=== PATIENT | male | born 1955 | race Caucasian/White ===

== ENCOUNTER 2016-07-01 11:31 | Inpatient (IN) | payer OTHER ==
[~2016-07-01] VITALS: Ht 170.2 cm; Wt 88.5 kg
[~2016-07-01 11:31] MED LIST: ATORVASTATIN CA10 MG PO; HYPERTENSION; LOSARTAN POTASS1 TA4 PO; METOPROLOL TART50 M1 PO; MICARDIS HCT 121 TA1 PO; PRADAXA150 MG PO; [UNRECOGNIZED DRUG - OTHER] PO; [UNRECOGNIZED DRUG - REMARK]
[2016-07-01 11:39] VITALS: BP 154/84
--- NOTE | 2016-07-01 11:44 | NUR ---
Patient ambulated to bed 05.
[2016-07-01] MEDS ORDERED: NITROGLYCERIN 2% 1 GM PKT TP ONE (11:45)
[2016-07-01] MEDS ORDERED: METOPROLOL 5 MG/5 ML VIAL IVP ONE (11:45)
--- NOTE | 2016-07-01 11:45 | NUR ---
PT REFERRED TO ER FROM PCP FOR EVALUATION OF CHEST PAIN X3 DAYS. HX HTN, HYPERLIPIDEMIA. EKG COMPLETED IN ER SHOWS Rebekah CURRIE NOTIFIED; DENIES N/V/D; SKIN IS PINK/WARM/DRY; AAOX4 WITH EVEN AND STEADY GAIT; LUNGS CLEAR BL; HR EVEN AND REGULAR; PT DENIES ANY FEVER, CP, SOB, OR COUGH AT THIS TIME; PATIENT STATES PAIN OF 5/10 AT THIS TIME; VSS; PATIENT POSITIONED FOR COMFORT; HOB ELEVATED; BEDRAILS UP X2; BED DOWN. ER MD MADE AWARE OF PT STATUS.
--- NOTE | 2016-07-01 13:05 | NUR ---
Dr. Ortiz evaluating patient at bedside.
[2016-07-01] MEDS ORDERED: ECOTRIN 81 MG TABEC PO ONE (13:45)
--- NOTE | 2016-07-01 13:56 | NUR ---
Patient will be admitted to care of DR CHE. Admited to TELE. Will go to room 108A. Belongings list completed. Report to NILESH MORILLO.
--- NOTE | 2016-07-01 13:56 | NUR ---
ASPIRIN WILL BE GIVEN BY NILESH MORILLO UPON ADMISSION, REPORT GIVEN TO NILESH MORILLO
--- NOTE | 2016-07-01 14:10 | NUR ---
ARRIVED ON FLOOR, 2 ER NURSES ATTENDING. PT IS STABLE AND AMBULATORY. PT IS 60Y/O MACEDONIAN SPEAKING MALE. HE IS ALERT AND ORIENTED. APPLIED TELE MONITOR, V/S, AND NEW ID BAND. PUT ON BEIGE SOCKS. REMOVED HIS PANTS AND PUT IN HIS PERSONAL BELONGINGS BAG. ASKED KAROLINA WILLOUGHBY TO TRANSLATE. PT IS A GOOD HISTORIAN OF HIS MEDICAL HISTORY. PT STATED THAT HE DOES HAVE HYPERLIPIDEMIA AND HYPERTENSION BUT HAS NOT TAKEN MEDICATION FOR 4 MO SINCE HE WAS IN [place]. HE ALSO HAS HX OF GOUT. NO MEDS. SKIN IS INTACT. IV ON L AC 20G. NO FLUID ORDERS AT THIS TIME. WILL CONTINUE TO MONITOR PT.
[2016-07-01 14:20] VITALS: BP 131/93
[2016-07-01 16:00] VITALS: BP 129/94
--- NOTE | 2016-07-01 16:10 | NUR ---
CALLED DR. CHE. ASKED HIM FOR AN ORDER FOR DIET. HE ORDERED CARDIAC. ALSO ORDERED TROPONIN (4 HRS APART). ASKED MARISELA, CHARGE NURSE TO PUT IN ORDERS INTO THE COMPUTER. DR. CHE STATED, HE WILL BE HERE IN AN HOUR TO SEE PT.
--- NOTE | 2016-07-01 17:50 | NUR ---
ATE 100% OF DINNER. PT HAS NO COMPLAINTS. NO PAIN. RESTING COMFORTABLY.
[2016-07-01] MEDS ORDERED: ASPIRIN 81 MG TAB.CHEW PO SCH (18:15)
[2016-07-01] MEDS ORDERED: MORPHINE SULFATE 2 MG/ML SYR IVP PRN (18:45)
[2016-07-01] MEDS ORDERED: MORPHINE SULFATE 4 MG/ML SYR IVP PRN (18:45)
[2016-07-01] MEDS ORDERED: ONDANSETRON 4 MG/2 ML VIAL IVP PRN (18:45)
--- NOTE | 2016-07-01 19:07 | NUR ---
PT SLEEPING. NO SIGNS OF DISTRESS. WILL CONTINUE TO MONITOR PT.
--- NOTE | 2016-07-01 19:25 | NUR ---
ENDORSED PT TO THE BULLDOZER/LOADER/COMPACTOR/SCRAPER AT BEDSIDE FOR CONTINUITY OF CARE. PT IS IN STABLE CONDITION. PT C/O PAIN. ELIER WILL GET HIM A PAIN MED.
[2016-07-01 19:45] VITALS: BP 120/68
--- NOTE | 2016-07-01 19:45 | NUR ---
RECEIVED PT IN STABLE CONDITION FROM AM NURSE. AWAKE,ALERT,ORIENTED X4. ON TELE -A FIB. NO ACUTE DISTRESS NOTED. WITH HL ON THE LT AC#20. CLEAR AND PATENT. PLAN OF CARE DISCUSSED AND VERBALIZED UNDERSTANDING. MADE AWARE ABOUT HE NPO STATUS AFTER MN FOR THE LEXISCAN IN AM. CALL LIGHT AND URINAL PLACED WITHIN EASY REACH. WILL CONTINUE TO MONITOR.
[2016-07-01] MEDS ORDERED: ACETAMINOPHEN 325 MG TAB PO PRN (20:00)
--- NOTE | 2016-07-01 20:00 | NUR ---
PAGED DR. WITT, FOR PT C/O HEADACHE. Maria Elena VIEIRA DIRECTOR OF GIFT PLANNING. CALLED BACK WITH TYLENOL PO ORDER PRN.
[2016-07-01] MEDS: SIMVASTATIN 20 MG TAB PO SCH (20:18)
[2016-07-01] MEDS ORDERED: METOPROLOL 25 MG TAB PO SCH (21:00)
--- NOTE | 2016-07-01 22:00 | NUR ---
SLEEPING AT THIS TIME. NO S/S OF ANY DISCOMFORT NOR PAIN NOTED. WILL CONTINUE TO MONITOR.
[2016-07-01 23:03] VITALS: BP 110/60
--- NOTE | 2016-07-01 23:14 | NUR ---
PT HR LOW ON THE MONITOR @2237 HR-40, THEN @2300 HR-37.ASSESSED PT ,NO DISTRESS NOR PAIN NOTED. VITAL SIGNS WAS TAKEN @2303 TEMP 98, R-18,HR-59, BP 110/60. PAGED AND ABLE TO TALKED TO HIM AND MADE AWARE OF THE CHANGES IN HR, WITH ORDER TO DC LOPRESSOR. WILL CONTINUE TO MONITOR .
[2016-07-02] VITALS (7 sets, daily range): BP systolic 101–148; BP diastolic 53–100
--- NOTE | 2016-07-02 00:10 | NUR ---
INSTRUCTED PT AGAIN ABOUT THE NPO AFTER MN FOR THE PROCEDURE IN AM. VERBALIZED UNDERSTANDING
--- NOTE | 2016-07-02 02:13 | NUR ---
PT C/O SOME DISCOMFORT ON THE LT LOWER SIDE OF THE CHEST @08/03. PT REFUSED TO HAVE ANY PAIN MED AT THIS TIME. INSTRUCTED TO CALL IF PAIN BECOMES WORST . VERBALIZED UNDERSTANDING
--- NOTE | 2016-07-02 03:30 | NUR ---
REASSESSED PT HE SAID NO PAIN AT THIS TIME. VITAL SIGNS TAKEN . STABLE . WILL CONTINUE TO MONITOR.
--- NOTE | 2016-07-02 05:30 | NUR ---
SLEEPING AT THIS TIME. NO C/O ANY PAIN NOTED. WILL CONTINUE TO MONITOR.
--- NOTE | 2016-07-02 07:20 | NUR ---
RECEIVED PATIENT REPORT. PATIENT ASLEEP IN BED. BUT EASILY AROUSABLE. NO S/S OF DISTRESS NOTED. NO C/O OF PAIN. PATIENT NPO FOR A SCHEDULED STRESS TEST TODAY. PATIENT AWARE AND VERBALIZED UNDERSTANDING. PATIENT ON TELE MONITORING. BED LOWERED WITH CALL LIGHT WITHIN REACH. WILL CONTINUE TO MONITOR
--- NOTE | 2016-07-02 07:20 | NUR ---
ENDORSED PT IN STABLE CONDITION TO AM NURSE.
--- NOTE | 2016-07-02 08:19 | NUR ---
PATIENT HAS BEEN SCREENED AND CATEGORIZED MODERATE NUTRITION RISK. PATIENT WILL BE SEEN WITHIN 3-5 DAYS OF ADMISSION. 07/04/16-07/06/[address]
[2016-07-02] MEDS: ISOSORBIDE DINITRATE 10 MG TAB PO SCH ×3 (09:00→16:03)
[2016-07-02] MEDS ORDERED: NON-FORMULARY ITEM (Losartan/Hydrochlorothiazide (Losartan-Hctz 100-12.5 mg Tab) 1 TAB) PO SCH (09:00)
[2016-07-02] MEDS ORDERED: NON-FORMULARY ITEM (Atorvastatin Calcium 20 MG) PO SCH (09:00)
[2016-07-02] MEDS ORDERED: DABIGATRAN ETEXILATE MESYLAT 75 MG CAP PO SCH (09:00)
[2016-07-02] MEDS ORDERED: ASPIRIN 81 MG TAB.CHEW PO SCH (09:00)
--- NOTE | 2016-07-02 09:00 | NUR ---
SCHEDULED MEDS HELD. PATIENT NPO FOR STRESS TEST
--- NOTE | 2016-07-02 11:55 | NUR ---
PATIENT LEFT FOR STRESS TEST
[2016-07-02] MEDS ORDERED: REGADENOSON 0.4 MG/5 ML SYR IV SCH (12:30)
[2016-07-02] MEDS ORDERED: METOPROLOL 5 MG/5 ML VIAL IVP SCH (13:35)
--- NOTE | 2016-07-02 14:03 | NUR ---
LEXISCAN STRESS TEST DONE
--- NOTE | 2016-07-02 14:06 | NUR ---
CM NOTE INITIAL REVIEW SENT TO [facility] FAX#[phone] PH# FABIANA [phone]
[2016-07-02] MEDS ORDERED: METOPROLOL TART25 MG PO (15:20)
[2016-07-02] MEDS ORDERED: PRADAXA150 MG PO (15:25)
[2016-07-02] MEDS ORDERED: ATORVASTATIN CA20 MG PO (15:27)
[2016-07-02] MEDS ORDERED: POTASSIUM CHLORIDE 10 MEQ TABER PO SCH (15:30)
[2016-07-02] MEDS ORDERED: MAG SULF 2000 MG/WATER PREMIX 50 ML IV SCH (15:30)
--- NOTE | 2016-07-02 15:30 | NUR ---
PATIENT EATING. NO S/S OF DISTRESS NOTED. NO C/O PAIN
--- NOTE | 2016-07-02 15:54 | NUR ---
CLARIFIED WITH DR CHE THE ORDER FOR MAGNESIUM. ORDERS TO ADMINISTER THE MEDICATION
[2016-07-02] MEDS: HYDROCHLOROTHIAZIDE 25 MG TAB PO SCH (15:55)
[2016-07-02] MEDS: ATORVASTATIN 20 MG TAB PO SCH (15:55)
[2016-07-02] MEDS: LOSARTAN 50 MG TAB PO SCH (15:56)
[2016-07-02] MEDS: ASPIRIN 81 MG TAB.CHEW PO SCH (15:56)
--- NOTE | 2016-07-02 16:45 | NUR ---
PATIENT'S FAMILY PRESENT AT BEDSIDE. PATIENT WATCHING TELEVISION. NO S/S OF DISTRESS NOTED
--- NOTE | 2016-07-02 19:16 | NUR ---
ENDORSED CONTINUITY OF CARE TO THE NIGHT NURSE. PATIENT IN STABLE CONDITION
--- NOTE | 2016-07-02 19:40 | NUR ---
RECEIVED PT IN STABLE CONDITION FROM AM NURSE. AWAKE,ALERT AND ORIENTED X4. KAZAKH SPEAKING. ON TELE 0A FIB. NO C.O ANY DISCOMFORT NOR PAIN NOTED AT THIS TIME. AMBULATORY. WITH HL ON THE LT AC#20.CLEAR AND PATENT. FAMILY AT BEDSIDE. AWAITING FOR RESULT OF LEXISCAN . PT MADE AWARE ABOUT THIS . CALL LIGHT PLACED WITHIN EASY REACH. WILL CONTINUE TO MONITOR.
[2016-07-02] MEDS: SIMVASTATIN 20 MG TAB PO SCH (21:25)
[2016-07-02] MEDS: DABIGATRAN ETEXILATE MESYLAT 75 MG CAP PO SCH (21:26)
--- NOTE | 2016-07-02 23:40 | NUR ---
PT IS SLEEPING WITH NO S/S OF ANY DISCOMFORT NOTED. WILL CONTINUE TO MONITOR.
[2016-07-03 00:10] VITALS: BP 136/77
--- NOTE | 2016-07-03 02:00 | NUR ---
HAS BEEN UP TO BATHROOM X2. NO DISCOMFORT NOTED. NO CHEST AT THIS TIME.
--- NOTE | 2016-07-03 04:00 | NUR ---
VITAL SIGNS TAKEN .STABLE. STILL AWAITING FOR RESULT OF LEXISCAN. WILL ENDORSE TO AM NURSE FOLLOW UP THIS AM.
[2016-07-03 04:05] VITALS: BP 132/84
--- NOTE | 2016-07-03 07:11 | NUR ---
RECEIVED PATIENT REPORT AT BEDSIDE. PATIENT AWAKE, ALERT AND ORIENTED. NO S/S OF DISTRESS NOTED. NO C/O OF PAIN. IV LINE NOTED TO THE LEFT AC SALINE LOCKED. PATIENT ON TELE MONITORING. BED LOWERED WITH CALL LIGHT WITHIN REACH. WILL CONTINUE TO MONITOR
--- NOTE | 2016-07-03 07:11 | NUR ---
ENDORSED PT IN STABLE CONDITION TO AM NURSE.
[2016-07-03 08:00] VITALS: BP 128/73
[2016-07-03] MEDS: LOSARTAN 50 MG TAB PO SCH (08:11)
[2016-07-03] MEDS: ATORVASTATIN 20 MG TAB PO SCH (08:11)
[2016-07-03] MEDS: ASPIRIN 81 MG TAB.CHEW PO SCH (08:12)
[2016-07-03] MEDS: HYDROCHLOROTHIAZIDE 25 MG TAB PO SCH (08:12)
[2016-07-03] MEDS: ISOSORBIDE DINITRATE 10 MG TAB PO SCH (08:12)
[2016-07-03] MEDS: DABIGATRAN ETEXILATE MESYLAT 75 MG CAP PO SCH (08:13)
--- NOTE | 2016-07-03 10:30 | NUR ---
STRESS TEST REPORT SHOWN TO DR CHE. DR CHE STATES PATIENT IS CLEAR TO BE DISCHARGED HOME
[2016-07-03] MEDS ORDERED: XARELTO20 MG PO (10:55)
--- NOTE | 2016-07-03 11:38 | NUR ---
PATIENT DISCHARGED TO HOME. DISCHARGE INSTRUCTIONS AND DISCHARGE PRESCRIPTIONS GIVEN. PATIENT VERBALIZED UNDERSTANDING. IV LINE DISCONTINUED. TELE LEADS TAKEN OFF. PATIENT LEFT WITH ALL HIS BELONGINGS AND DISCHARGE PAPERS. PATIENT LEFT IN STABLE CONDITION
--- NOTE | 2016-07-03 14:31 | NUR ---
GUADALUPE IRVING SPOKE WITH GUADALUPE JUNG OF [facility] PH# [phone] TO INFORM HER PATIENT IS DISCHARGED TODAY. DISCHARGE SUMMARY SENT TO [facility] FAX# [phone] PH# FABIANA [phone]
== END 2016-07-03 11:40 | disposition home or self-care (01) | DRG 198 ==
LOC: MED 11:31 → MTU 13:28
PROVIDERS: ADMIT Internal Medicine Pulmonary Disease; ATTEND Internal Medicine Pulmonary Disease
DX: R07.89 Other chest pain (principal); I25.10 Atherosclerotic heart disease of native coronary artery without angina pectoris; I10 Essential (primary) hypertension; I48.91 Unspecified atrial fibrillation; Z91.14 Patient's other noncompliance with medication regimen; E78.5 Hyperlipidemia, unspecified; Z98.890 Other specified postprocedural states

== ENCOUNTER 2019-03-17 20:05 | Emergency (ER) | payer OTHER ==
[~2019-03-17] VITALS: Ht 170.2 cm; Wt 93.9 kg
[~2019-03-17 20:05] MED LIST changes: +ATOR20TA40 PO; -ATORVASTATIN CA10 MG PO; +HYDR-3298 PO; -HYPERTENSION; -LOSARTAN POTASS1 TA4 PO; +METO25TA PO; -METOPROLOL TART50 M1 PO; -MICARDIS HCT 121 TA1 PO; -PRADAXA150 MG PO; +RIVA20TA PO; -[UNRECOGNIZED DRUG - OTHER] PO; -[UNRECOGNIZED DRUG - REMARK]
[2019-03-17 20:17] VITALS: BP 156/105
--- NOTE | 2019-03-17 20:25 | NUR ---
PT AMBULATED TO BED #1
--- NOTE | 2019-03-17 20:44 | NUR ---
PT 63 Y/O M PRESENTS TO ER C/O DIZZINESS AND LEFT STERNAL CHEST PAIN AND NUMBNESS TO LEFT ARM SINCE NOON. PAIN LEVEL 6/10, SHARP PAIN THAT COMES AND GOES. PT AWAKE AND ALERT. VSS. DENIES SHORTNESS OF BREATH. HOB ELEVATED, BED IN LOWEST POSITION, SIDE RAIL UP X1. WAITING FOR ERMD TO EVALUATE PT. ALLERGIES: NKA MED HX: HTN, HYPERLIPIDEMIA, ARRYTHMIA RX: LOSARTAN HCT 100-12.5 TAB ATORVASTATIN 40MG TAB METOPROL SUC 50MG TAB XARELTO 15MG TAB
[2019-03-17 20:50] LABS: BASOPHILS % (AUTO) 0.3 % (0.0-2.0); EOSINOPHILS # (AUTO) 0.2 K/uL (0-0.4); EOSINOPHILS % (AUTO) 2.7 % (0.0-4.0); HEMATOCRIT 46.5 % (36-52); HEMOGLOBIN 15.8 g/dL (12.0-18.0); LYMPHOCYTES # (AUTO) 3.5 K/uL (2.0-11.5); LYMPHOCYTES % (AUTO) 45.3 % (20.5-51.1); MEAN CORPUSCULAR HEMOGLOBIN 32 pg (27-31); MEAN CORPUSCULAR HGB CONC 34 g/dL (33-37); MEAN CORPUSCULAR VOLUME 92.7 fL (80-94); MONOCYTES # (AUTO) 0.5 K/uL (0.8-1.0); MONOCYTES % (AUTO) 6.9 % (1.7-9.3); NEUTROPHILS # (AUTO) 3.5 K/uL (1.8-7.7); NEUTROPHILS % (AUTO) 44.8 % (42.2-75.2); PLATELET COUNT (AUTO) 184 K/uL (140-450); RED BLOOD CELL COUNT(AUTO) 5.02 MIL/uL (4.20-6.10); RED CELL DISTRIBUTION WIDTH 14.4 % (11.6-13.7); WHITE BLOOD COUNT (AUTO) 7.8 K/uL (4.8-10.8)
[2019-03-17 21:25] LABS: ANION GAP 15.4 (8-16); CARBON DIOXIDE 28.5 mmol/L (21-32); CREATININE 1.1 mg/dL (0.7-1.3); POTASSIUM 3.9 mmol/L (3.5-5.1)
[2019-03-17 21:30] LABS: ALBUMIN 3.7 g/dL (3.4-5.0); TOTAL BILIRUBIN 0.8 mg/dL (0.0-1.0)
--- NOTE | 2019-03-17 22:00 | NUR ---
PT RESTING IN BED, VSS. FAMILY AT BEDSIDE. WILL CONTINUE TO MONITOR.
[2019-03-17 23:17] VITALS: BP 124/76
--- NOTE | 2019-03-17 23:17 | NUR ---
Patient discharged with v/s stable. Written and verbal after care instructions given and explained. Pt encouraged to rest and follow up with PCP in 4-5 days. Patient alert, oriented and verbalized understanding of instructions. Ambulatory with steady gait. All questions addressed prior to discharge. ID band removed. Patient advised to follow up with PMD. Rx of mOTRIN 800MG WAS given. Patient educated on indication of medication including possible reaction and side effects. Opportunity to ask questions provided and answered.
== END 2019-03-17 23:17 | disposition home or self-care (01) ==
LOC: MED 20:05
DX: R07.9 Chest pain, unspecified (principal); R06.02 Shortness of breath; I10 Essential (primary) hypertension; E78.5 Hyperlipidemia, unspecified; Z79.899 Other long term (current) drug therapy
CPT/HCPCS: 36415; 71045; 80053; 84484; 85025; 93005; 99284; Q0092

== ENCOUNTER 2019-07-09 16:39 | Emergency (ER) | payer OTHER ==
[~2019-07-09] VITALS: Ht 170.2 cm; Wt 81.6 kg
[2019-07-09 16:46] VITALS: BP 131/96
--- NOTE | 2019-07-09 17:00 | NUR ---
PT C/O RT KNEE PAIN RADIATING TO THE RT-SIDED HIP AND LOWER BACK FOR 2 DAYS, AND THE PAIN WAKENS PT UP DURING SLEEP. DENIES TRAUMA/INJURY. PATIENT STATES PAIN OF 10/10 AT THIS TIME; VSS; PATIENT POSITIONED FOR COMFORT; HOB ELEVATED; BEDRAILS UP X1; BED DOWN. ER MD MADE AWARE OF PT STATUS.
[2019-07-09] MEDS ORDERED: KETOROLAC 60 MG/2 ML VIAL IM ONE (18:25)
[2019-07-09 18:55] VITALS: BP 116/88
--- NOTE | 2019-07-09 18:55 | NUR ---
Patient discharged with v/s stable. Written and verbal after care instructions given and explained. Patient alert, oriented and verbalized understanding of instructions. Ambulatory with crutches provided. All questions addressed prior to discharge. ID band removed. Patient advised to follow up with PMD. Rx of Motrin given. Patient educated on indication of medication including possible reaction and side effects. Opportunity to ask questions provided and answered.
== END 2019-07-09 18:55 | disposition home or self-care (01) ==
LOC: MED 16:39
DX: M25.561 Pain in right knee (principal); I51.9 Heart disease, unspecified; Z79.899 Other long term (current) drug therapy
CPT/HCPCS: 36415; 73562; 84550; 96372; 99284; J1885

== ENCOUNTER 2021-09-24 09:18 | Inpatient (IN) | payer OTHER ==
[~2021-09-24] VITALS: Ht 172.7 cm; Wt 95.4 kg
[~2021-09-24 09:18] MED LIST changes: +ACET-10509 PO; +AZIT250T3 PO; +CEPH-588 PO; +IBUP-2230 PO; +SULF-58 PO
[2021-09-24 09:21] VITALS: BP 134/93
--- NOTE | 2021-09-24 09:25 | NUR ---
PT AMBULATED TO ER BED 1
[2021-09-24] MEDS ORDERED: ASPIRIN 81 MG TAB.CHEW PO ONE (09:40)
--- NOTE | 2021-09-24 09:40 | NUR ---
66Y MALE BIB SELF C/O COUGH & MID CHEST PAIN NON-RADIAITNG X3 DAYS. PMH: HTN. DENIES N/V/D; SKIN IS PINK/WARM/DRY; AAOX4 WITH EVEN AND STEADY GAIT; LUNGS CLEAR BL; TACHYCARDIA. PT DENIES ANY FEVER AT THIS TIME; PATIENT STATES PAIN OF 8/10 AT THIS TIME. PATIENT POSITIONED FOR COMFORT; HOB ELEVATED; BEDRAILS UP X1; BED DOWN. ER MD MADE AWARE OF PT STATUS.
--- NOTE | 2021-09-24 09:40 | NUR ---
Note undone in EDM - 09/24/21 at 1019 by [email or web address] 66Y MALE BIB SELF C/O COUGH & MID CHEST PAIN NON-RADIAITNG X3 DAYS. PMH: HTN. DENIES N/V/D; SKIN IS PINK/WARM/DRY; AAOX4 WITH EVEN AND STEADY GAIT; LUNGS CLEAR BL; TACHYCARDIA. PT DENIES ANY FEVER OR SOB AT THIS TIME; PATIENT STATES PAIN OF 8/10 AT THIS TIME. PATIENT POSITIONED FOR COMFORT; HOB ELEVATED; BEDRAILS UP X1; BED DOWN. ER MD MADE AWARE OF PT STATUS.
--- NOTE | 2021-09-24 09:48 | NUR ---
Patient being evaluated by DR AZUL at bedside.
[2021-09-24] MEDS ORDERED: KETOROLAC 30 MG/ML VIAL IVP ONE (09:50)
--- NOTE | 2021-09-24 10:00 | NUR ---
COVID TORI SWAB DONE.
[2021-09-24 10:07] LABS: BASOPHILS % (AUTO) 0.2 % (0.0-2.0); EOSINOPHILS % (AUTO) 0.1 % (0.0-4.0); HEMATOCRIT 43.2 % (36-52); HEMOGLOBIN 14.3 g/dL (12.0-18.0); LYMPHOCYTES # (AUTO) 1.4 K/uL (2.0-11.5); LYMPHOCYTES % (AUTO) 9.7 % (20.5-51.1); MEAN CORPUSCULAR HEMOGLOBIN 30 pg (27-31); MEAN CORPUSCULAR HGB CONC 33 g/dL (33-37); MEAN CORPUSCULAR VOLUME 90.6 fL (80-94); MONOCYTES # (AUTO) 0.2 K/uL (0.8-1.0); MONOCYTES % (AUTO) 1.5 % (1.7-9.3); NEUTROPHILS # (AUTO) 12.5 K/uL (1.8-7.7); NEUTROPHILS % (AUTO) 88.5 % (42.2-75.2); PLATELET COUNT (AUTO) 227 K/uL (140-450); RED BLOOD CELL COUNT(AUTO) 4.76 MIL/uL (4.20-6.10); RED CELL DISTRIBUTION WIDTH 15.4 % (11.6-13.7); WHITE BLOOD COUNT (AUTO) 14.1 K/uL (4.8-10.8)
[2021-09-24] MEDS ORDERED: ATOR40TA PO (10:39)
[2021-09-24] MEDS ORDERED: TAMS0.4C96 PO (10:39)
[2021-09-24] MEDS ORDERED: LOSA100T1 PO (10:42)
[2021-09-24] MEDS ORDERED: [UNRECOGNIZED DRUG - OTHER] (10:46)
[2021-09-24] MEDS ORDERED: METO50TE2 PO (10:46)
[2021-09-24] MEDS ORDERED: NACL 0.9% 1,000 ML IV ONE (10:50)
[2021-09-24] MEDS ORDERED: cefTRIAXone 1,000 MG VIAL ONE (10:53)
[2021-09-24 10:59] LABS: ANION GAP 12.4 (8-16); CARBON DIOXIDE 27.9 mmol/L (21-32); CREATININE 1.3 mg/dL (0.6-1.3); POTASSIUM 3.3 mmol/L (3.5-5.1); TOTAL BILIRUBIN 1.4 mg/dL (0.0-1.0)
[2021-09-24] MEDS ORDERED: DOCUSATE SODIUM 100 MG GELCAP PO PRN (11:45)
[2021-09-24] MEDS ORDERED: ONDANSETRON 4 MG/2 ML VIAL IM/IVP PRN (11:45)
[2021-09-24] MEDS ORDERED: ACETAMINOPHEN 325 MG TAB PO PRN (11:45)
[2021-09-24] MEDS ORDERED: POTASSIUM CHLORIDE 10 MEQ TABER PO PRN (11:45)
[2021-09-24] MEDS ORDERED: ZOLPIDEM 5 MG TAB PO PRN (11:45)
[2021-09-24] MEDS ORDERED: HYDROcodone/APAP 7.5/325 MG 1 TAB PO PRN (11:45)
[2021-09-24] MEDS ORDERED: METOPROLOL SUCCINATE 50 MG TABER PO PRN (11:50)
[2021-09-24 12:09] LABS: PROTHROMBIN TIME 12.3 secs (10.8-13.4)
[2021-09-24] MEDS: AZITHROMYCIN 250 MG TAB PO SCH (12:10)
[2021-09-24] MEDS: NACL 0.9% 1,000 ML IV SCH (12:11)
[2021-09-24] MEDS ORDERED: DIGOXIN 0.25 MG/ML AMP IV SCH (13:10)
[2021-09-24 18:17] LABS: FREE T4 (FREE THYROXINE) 1.41 ng/dL (0.76-1.46); PHOSPHORUS 3.5 mg/dL (2.5-4.9); THYROID STIMULATING HORMONE 0.87 uIU/mL (0.34-3.74)
[2021-09-24 18:24] LABS: MAGNESIUM 1.8 mg/dL (1.8-2.4)
--- NOTE | 2021-09-24 18:41 | NUR ---
MRSA SWAB DONE.
--- NOTE | 2021-09-24 19:31 | NUR ---
Pt report given to NILESH PIÑA. Transfer of care at this time.
--- NOTE | 2021-09-24 21:00 | NUR ---
PATIENT IN ROOM RESTING. PATIENT IV INTACT AND RUNNING. PATIENT BED LOW AND LOCKED. SIDE RAIL UP FOR SAFETY. ALL NEEDS MET AT THIS TIME.
[2021-09-24] MEDS: METOPROLOL 50 MG TAB PO SCH (21:22)
[2021-09-24] MEDS: ATORVASTATIN 20 MG TAB PO SCH (21:24)
[2021-09-24] MEDS: RIVAROXABAN 10 MG TAB PO SCH (21:27)
--- NOTE | 2021-09-24 22:08 | NUR ---
IV ESTABLISHED. 22G LEFT HAND
--- NOTE | 2021-09-25 01:30 | NUR ---
PATIENT SLEEPING IN BED. APPEARS TO BE IN NO DISTRESS, RR EVEN AND UNLABORED. BED LOW AND LOCKED. ALL NEEDS MET AT THIS TIME
[2021-09-25] MEDS: NACL 0.9% 1,000 ML IV SCH ×2 (04:25→21:05)
--- NOTE | 2021-09-25 05:05 | NUR ---
PATIENT SLEEPING IN BED. APPEARS TO BE IN NO DISTRESS. BED LOW AND LOCKED. ALL NEEDS MET AT THIS TIME
[2021-09-25] MEDS: METOPROLOL 50 MG TAB PO SCH ×3 (05:35→20:29)
[2021-09-25] MEDS: guaiFENesin DM 200/20 MG-10 ML 10 ML UDC PO PRN (05:42)
--- NOTE | 2021-09-25 05:42 | NUR ---
PATIENT C/O COUGH PRN MEDS GIVEN
--- NOTE | 2021-09-25 07:28 | NUR ---
RECEIVED REPORT FROM KAYLEIGH PIÑA FOR TRANSFER OF CARE.
[2021-09-25 07:32] LABS: BASOPHILS % (AUTO) 0.2 % (0.0-2.0); EOSINOPHILS # (AUTO) 0.1 K/uL (0-0.4); EOSINOPHILS % (AUTO) 1.4 % (0.0-4.0); HEMATOCRIT 39.7 % (36-52); HEMOGLOBIN 13.2 g/dL (12.0-18.0); LYMPHOCYTES % (AUTO) 21.8 % (20.5-51.1); MEAN CORPUSCULAR HEMOGLOBIN 30 pg (27-31); MEAN CORPUSCULAR HGB CONC 33 g/dL (33-37); MEAN CORPUSCULAR VOLUME 91.1 fL (80-94); MONOCYTES # (AUTO) 0.4 K/uL (0.8-1.0); MONOCYTES % (AUTO) 4.3 % (1.7-9.3); NEUTROPHILS # (AUTO) 6.6 K/uL (1.8-7.7); NEUTROPHILS % (AUTO) 72.3 % (42.2-75.2); PLATELET COUNT (AUTO) 206 K/uL (140-450); RED BLOOD CELL COUNT(AUTO) 4.36 MIL/uL (4.20-6.10); RED CELL DISTRIBUTION WIDTH 15.6 % (11.6-13.7); WHITE BLOOD COUNT (AUTO) 9.1 K/uL (4.8-10.8)
[2021-09-25 08:08] LABS: T4 (THYROXINE) 8.5 ug/dL (4.5-12.0)
[2021-09-25 08:09] LABS: ANION GAP 10.7 (8-16); CARBON DIOXIDE 25.8 mmol/L (21-32); CREATININE 1.1 mg/dL (0.6-1.3); POTASSIUM 3.5 mmol/L (3.5-5.1)
--- NOTE | 2021-09-25 08:51 | NUR ---
OFFERED BREAKFAST TRAY. PATIENT IS SITTING UP EATING BREAKFAST.
[2021-09-25] MEDS ORDERED: LOSARTAN 50 MG TAB PO SCH (09:00)
[2021-09-25] MEDS ORDERED: TAMSULOSIN 0.4 MG CAP PO SCH (09:00)
[2021-09-25] MEDS: AZITHROMYCIN 250 MG TAB PO SCH (10:00)
[2021-09-25] MEDS: PANTOPRAZOLE 40 MG TABEC PO SCH (10:00)
--- NOTE | 2021-09-25 10:00 | NUR ---
MEDICATION GIVEN TO PATIENT, TOLERATED WELL. PATIENT HAS NO SIGNS OF DISTRESS. ALL NEEDS MET.
[2021-09-25] MEDS ORDERED: cefTRIAXone 1,000 MG VIAL ONE (10:03)
--- NOTE | 2021-09-25 11:08 | NUR ---
PATIENT AMBULATED TO RESTROOM WITH STEADY GAIT.
--- NOTE | 2021-09-25 12:15 | NUR ---
Patient will be admitted to care of DR. HERNADEZ. Admited to TELEMETRY. Will go to room 107-B. Belongings list completed. Report to NILESH GREEN.
[2021-09-25 12:25] VITALS: BP 148/91
--- NOTE | 2021-09-25 12:25 | NUR ---
RECEIVED PT FROM ELECTRIC METER REPAIRER, PT IS ALERT AND ORIENTED, ON RA, AMBULATES TO THE BED WITH STEADY GAIT, SAFETY PRECAUTION IN PLACE, IV LINES NOTED ON THE RAC G. 20 ON SALINE LOCK AND ON THE LEFT HAND G. 22 WITH IVF NS INFUSING AT 60ML/HR, INTACT, PT IS PERSIAN SPEAKING AND DENIES PAIN AT THIS TIME. WILL CONTINUE TO MONITOR PT.
[2021-09-25] MEDS ORDERED: RIVA20TA PO (14:48)
[2021-09-25] MEDS ORDERED: RANEX500 PO (14:48)
[2021-09-25] MEDS ORDERED: TAMS0.4C96 PO (14:48)
--- NOTE | 2021-09-25 15:43 | NUR ---
PATIENT HAS BEEN SCREENED AND CATEGORIZED LOW NUTRITION RISK. PATIENT WILL BE SEEN WITHIN 7 DAYS OF ADMISSION. 09/30/[address]
[2021-09-25 16:00] VITALS: BP 129/74
--- NOTE | 2021-09-25 18:03 | NUR ---
URINE SAMPLE FOR URINALYSIS AND URINE DRUG TEST WAS COLLECTED AND SENT TO LAB
--- NOTE | 2021-09-25 18:14 | NUR ---
MRSA OF NARES SWAB WAS DONE TO PT AND SAMPLE WAS SENT TO LAB.
--- NOTE | 2021-09-25 19:20 | NUR ---
ENDORSED PT TO NIGHT RN FOR CONTINUITY OF CARE, PT IS STABLE AT THIS TIME.
--- NOTE | 2021-09-25 19:25 | NUR ---
GET THE REPORT FROM MORNING NURSE,PATIENT IS LYING ON BED, PATIENT IS ALERT ORIENTED X4, PATIENT IS KHMER SPEAKER, CALL LIGHT IS WITHIN THE REACH, WILL CONTINUE TO MONITOR PATIENT.
[2021-09-25 19:46] LABS: APPEARANCE,URINE CLEAR (CLEAR); BILIRUBIN,URINE NEGATIVE (NEGATIVE); BLOOD, URINE NEGATIVE (NEGATIVE); LEUKOCYTE ESTERASE ,URINE NEGATIVE (NEGATIVE); NITRITE, URINE NEGATIVE (NEGATIVE); UGLUCOSE NEGATIVE (NEGATIVE)
[2021-09-25 19:47] LABS: COLOR,URINE AMBER (YELLOW)
[2021-09-25 20:00] VITALS: BP 143/78
[2021-09-25] MEDS: ATORVASTATIN 20 MG TAB PO SCH (20:28)
[2021-09-25] MEDS: RIVAROXABAN 10 MG TAB PO SCH (20:30)
[2021-09-25 22:07] LABS: BARBITURATE, URINE NEGATIVE ng/ml (NEG <=200); BENZODIAZEPINE, URINE NEGATIVE ng/mL (NEG <=200); CANNABINOID, URINE NEGATIVE ng/mL (NEG <=50); COCAINE, URINE NEGATIVE ng/mL (NEG <=300); OPIATE, URINE NEGATIVE ng/mL (NEG <=2000); PHENCYCLIDINE SCREEN,URINE NEGATIVE ng/mL (NEG <=25)
[2021-09-26] VITALS: BP 136/85
--- NOTE | 2021-09-26 00:10 | NUR ---
PATIENT IS LYING ON BED, VITAL SIGN IS WITHIN THE NORMAL RANGE, CALL LIGHT IS WITHIN THE REACH, WILL CONTINUE TO MONITOR PATIENT
[2021-09-26] MEDS: guaiFENesin DM 200/20 MG-10 ML 10 ML UDC PO PRN (01:28)
--- NOTE | 2021-09-26 01:30 | NUR ---
PATIENT IS COMPLAINING OF COUGHING,ROBITUSSIN 5ML PO PRN IS GIVEN PER DOCTOR ORDER,CALL LIGHT IS WITHIN THE REACH, WILL CONTINUE TO MONITOR PATIENT.
[2021-09-26 04:00] VITALS: BP 143/87
--- NOTE | 2021-09-26 04:15 | NUR ---
PATIENT IS LYING ON BED, VITAL SIGN IS WITHIN THE NORMAL RANGE , NO ANY COMPLAIN OF PAIN OR SHORTNESS OF BREATH AT THIS TIME,CALL LIGHT IS WITHIN THE REACH, WILL CONTINUE TO MONITOR PATIENT.
[2021-09-26] MEDS: METOPROLOL 50 MG TAB PO SCH ×2 (04:40→13:57)
--- NOTE | 2021-09-26 04:54 | NUR ---
ALL SCHEDULE MEDICATION IS GIVEN PER DOCTOR ORDER, CALL LIGHT IS WITHIN THE REACH, WILL CONTINUE TO MONITOR PATIENT.
--- NOTE | 2021-09-26 07:23 | NUR ---
GAVE REPORT TO MORNING NURSE MARISELA FOR CONTINUOS OF CARE, PATIENT IS STABLE.
[2021-09-26 07:36] LABS: BASOPHILS % (AUTO) 0.1 % (0.0-2.0); EOSINOPHILS # (AUTO) 0.2 K/uL (0-0.4); EOSINOPHILS % (AUTO) 2.1 % (0.0-4.0); HEMATOCRIT 36.8 % (36-52); HEMOGLOBIN 12.3 g/dL (12.0-18.0); LYMPHOCYTES # (AUTO) 1.7 K/uL (2.0-11.5); LYMPHOCYTES % (AUTO) 21.6 % (20.5-51.1); MEAN CORPUSCULAR HEMOGLOBIN 30 pg (27-31); MEAN CORPUSCULAR HGB CONC 33 g/dL (33-37); MEAN CORPUSCULAR VOLUME 90.5 fL (80-94); MONOCYTES # (AUTO) 0.4 K/uL (0.8-1.0); MONOCYTES % (AUTO) 5.1 % (1.7-9.3); NEUTROPHILS # (AUTO) 5.6 K/uL (1.8-7.7); NEUTROPHILS % (AUTO) 71.1 % (42.2-75.2); PLATELET COUNT (AUTO) 191 K/uL (140-450); RED BLOOD CELL COUNT(AUTO) 4.06 MIL/uL (4.20-6.10); RED CELL DISTRIBUTION WIDTH 15.3 % (11.6-13.7); WHITE BLOOD COUNT (AUTO) 7.9 K/uL (4.8-10.8)
[2021-09-26 07:40] LABS: ANION GAP 12.7 (8-16); CARBON DIOXIDE 24.6 mmol/L (21-32); POTASSIUM 3.3 mmol/L (3.5-5.1)
[2021-09-26 08:00] VITALS: BP 142/82
--- NOTE | 2021-09-26 08:00 | NUR ---
RECEIVED REPORT FROM EXTRACTOR FILLER FOR CONTINUITY OF CARE. PATIENT ALERT AWAKE ORIENTED X4, NOT IN DISTRESS NOTED. DENIES CHEST PAIN. ON MONITOR SHOWS A. FIB. WITH IVF ON GOING AND INFUSING WELL. DENIES CHEST PAIN, WITH INTERMITTENT COUGH NOTED. DICUSSED PLAN OF CARE. NEEDS ATTENDED. WILL CONTINUE TO MONITOR.
[2021-09-26] MEDS: AZITHROMYCIN 250 MG TAB PO SCH (08:30)
[2021-09-26] MEDS: PANTOPRAZOLE 40 MG TABEC PO SCH (08:30)
[2021-09-26] MEDS ORDERED: RIVAROXABAN 10 MG TAB PO SCH (09:00)
[2021-09-26] MEDS ORDERED: LOSA25TA32 PO (10:14)
[2021-09-26] MEDS ORDERED: AMOX-999 PO (10:16)
--- NOTE | 2021-09-26 10:30 | NUR ---
WITH ORDER FOR DC HOME TODAY. DC PAPERS INITIATED. WILL CONTINUE TO MONITOR. IV ABX WILL BE GIVEN.
[2021-09-26 12:00] VITALS: BP 145/89
[2021-09-26] MEDS: NACL 0.9% 1,000 ML IV SCH (13:45)
--- NOTE | 2021-09-26 14:23 | NUR ---
DISCHARGE PATIENT TO HOME VIA WHEELCHAIR ACCOMPANIED BY CERTIFIED NURSE MIDWIFE. DISCHARGE INSTRUCTION AND PRESCRIPTION GIVEN AND VERBALIZED UNDERSTANDING. PATIENT IN STABLE CONDITION.
[2021-09-26] MEDS ORDERED: TAMSULOSIN 0.4 MG CAP PO SCH (21:00)
== END 2021-09-26 14:25 | disposition home or self-care (01) | DRG 871 ==
LOC: MED 09:18 → MTU 11:07
PROVIDERS: ADMIT Family Medicine; ATTEND Family Medicine
DX: A41.9 Sepsis, unspecified organism (principal); J18.9 Pneumonia, unspecified organism; I50.43 Acute on chronic combined systolic (congestive) and diastolic (congestive) heart failure; E44.0 Moderate protein-calorie malnutrition; I48.20 Chronic atrial fibrillation, unspecified; I10 Essential (primary) hypertension; N40.0 Benign prostatic hyperplasia without lower urinary tract symptoms; E87.6 Hypokalemia; I11.0 Hypertensive heart disease with heart failure; E78.5 Hyperlipidemia, unspecified; E83.51 Hypocalcemia; E80.6 Other disorders of bilirubin metabolism; Z20.822 Contact with and (suspected) exposure to COVID-19; Z79.899 Other long term (current) drug therapy; Z79.01 Long term (current) use of anticoagulants
CPT/HCPCS: 36415; 71045; 80048; 80053; 80305; 81003; 82150; 83036; 83605; 83690; 83735; 83880; 84100; 84436; 84439; 84443; 84479; 84484; 85025; 85610; 85730; 87040; 87081; 93005; 96365; 96375; 99285; J0696; J1885; J7060; Q0092

== ENCOUNTER 2022-02-24 13:29 | Inpatient (IN) | payer OTHER ==
[~2022-02-24] VITALS: Ht 170.2 cm; Wt 91.6 kg
[~2022-02-24 13:29] MED LIST changes: -ACET-10509 PO; +AMOX-999 PO; -ATOR20TA40 PO; +ATOR40TA PO; -AZIT250T3 PO; -CEPH-588 PO; -HYDR-3298 PO; -IBUP-2230 PO; +LOSA25TA32 PO; -METO25TA PO; +METO50TE2 PO; +RANEX500 PO; -SULF-58 PO; +TAMS0.4C96 PO
[2022-02-24 13:39] VITALS: BP 136/76
--- NOTE | 2022-02-24 13:53 | NUR ---
XRAY AT BEDSIDE
--- NOTE | 2022-02-24 14:56 | NUR ---
66YO MALE PT C/O INTERMITTENT BURNING L CHEST PAIN [id number]. DENIES RADIATION W/ EPISODES LASTING ABOUT 1-2MIN. TENDER TO TOUCH, DENIES INJURY. PT WAS REFFERED TO COME TO ER BY PCP DUE TO ULTRASOUND FINDING OF " BLOOD IN L RIB CAGE". NOTES DIARRHEA X1-DENIES BLOOD. DENIES V/D, SOB, FEVER OR CHILLS. PT AAOX4, RESPIRATIONS EVEN AND UNLABORED. ON IT SECURITY CONSULTANT. BED AT LOWEST POSITION, BED RAILS UPX1. POLISH SPEAKING. HX:ARRHYTHMIA , HTN, ENLARGED PROSTATE NKA
[2022-02-24] MEDS ORDERED: ACETAMINOPHEN EXTRA STRENGTH 500 MG TAB PO ONE (15:05)
--- NOTE | 2022-02-24 15:30 | NUR ---
LAB AT BEDSIDE
[2022-02-24 15:39] LABS: BASOPHILS % (AUTO) 0.3 % (0.0-2.0); EOSINOPHILS # (AUTO) 0.1 K/uL (0-0.4); HEMATOCRIT 35.3 % (36-52); LYMPHOCYTES # (AUTO) 2.9 K/uL (2.0-11.5); MEAN CORPUSCULAR HEMOGLOBIN 30 pg (27-31); MEAN CORPUSCULAR HGB CONC 34 g/dL (33-37); MONOCYTES # (AUTO) 0.5 K/uL (0.8-1.0); MONOCYTES % (AUTO) 6.3 % (1.7-9.3); NEUTROPHILS # (AUTO) 4.7 K/uL (1.8-7.7); NEUTROPHILS % (AUTO) 57.4 % (42.2-75.2); PLATELET COUNT (AUTO) 242 K/uL (140-450); RED BLOOD CELL COUNT(AUTO) 4.06 MIL/uL (4.20-6.10); RED CELL DISTRIBUTION WIDTH 16.8 % (11.6-13.7); WHITE BLOOD COUNT (AUTO) 8.2 K/uL (4.8-10.8)
--- NOTE | 2022-02-24 15:39 | NUR ---
MD ARAGON AT BEDSIDE FOR EVALUATION
--- NOTE | 2022-02-24 15:56 | NUR ---
US AT BEDSIDE
[2022-02-24 16:45] LABS: AMYLASE 70 U/L (25-115); ANION GAP 13.4 (8-16); ASPARTATE AMINOTRANSFERASE 15 U/L (15-37); CARBON DIOXIDE 26.6 mmol/L (21-32); CHLORIDE 103 mmol/L (98-107); CREATININE 1.2 mg/dL (0.6-1.3); GFR ARICAN-AMERICAN 77 mL/min (>90); GLUCOSE 86 mg/dL (74-106); LIPASE 186 U/L (73-393); SODIUM SERUM 139 mmol/L (136-145); TOTAL BILIRUBIN 0.6 mg/dL (0.0-1.0); UREA NITROGEN, BLOOD 22 mg/dL (7-18)
--- NOTE | 2022-02-24 16:46 | NUR ---
call received from pt daughter YRAITZA - updated on pt status
[2022-02-24 17:09] LABS: APPEARANCE,URINE CLEAR (CLEAR); BILIRUBIN,URINE NEGATIVE (NEGATIVE); BLOOD, URINE NEGATIVE (NEGATIVE); COLOR,URINE YELLOW (YELLOW); LEUKOCYTE ESTERASE ,URINE 1+ (NEGATIVE); NITRITE, URINE POSITIVE (NEGATIVE); UGLUCOSE NEGATIVE (NEGATIVE)
[2022-02-24 17:14] LABS: RBC,URINE 0-5 /HPF (0-5)
[2022-02-24] MEDS ORDERED: NACL 0.9% 1,000 ML IV ONE (17:25)
[2022-02-24] MEDS ORDERED: cefTRIAXone 1,000 MG VIAL ONE (17:37)
[2022-02-24] MEDS ORDERED: ONDANSETRON 4 MG/2 ML VIAL IVP PRN (17:45)
[2022-02-24] MEDS ORDERED: ZOLPIDEM 10 MG TAB PO PRN (17:45)
[2022-02-24] MEDS ORDERED: MORPHINE SULFATE 2 MG/ML SYR IVP PRN (17:45)
[2022-02-24] MEDS ORDERED: MAG SULF 2000 MG/WATER PREMIX 50 ML IV PRN (17:45)
[2022-02-24] MEDS ORDERED: ACETAMINOPHEN 325 MG TAB PO PRN (17:45)
[2022-02-24] MEDS ORDERED: DOCUSATE SODIUM 100 MG GELCAP PO PRN (17:45)
[2022-02-24] MEDS ORDERED: POTASSIUM CHLORIDE 10 MEQ TABER PO PRN (17:45)
[2022-02-24] MEDS ORDERED: LORazepam 2 MG/ML VIAL IVP PRN (17:45)
[2022-02-24] MEDS ORDERED: ACET-2214 PO (19:32)
[2022-02-24] MEDS ORDERED: TAMS0.4C97 PO (19:32)
[2022-02-24] MEDS ORDERED: OMEP-283 PO (19:32)
[2022-02-24] MEDS ORDERED: RANO500T7 PO (19:32)
[2022-02-24] MEDS ORDERED: HYDR12.51 PO (19:32)
--- NOTE | 2022-02-24 19:40 | NUR ---
Patient will be admitted to care of MD STORY . Admited to [facility]. Will go to room 123B. Belongings list completed. Report to SANTANA GALLOWAY.
--- NOTE | 2022-02-24 19:42 | NUR ---
Maritza mcdonald in [place] - 02/24/22 at 1947 by [facility] PT TRANSFER TO Care[facility] . REPORT GIVEN OVER PHONE
--- NOTE | 2022-02-24 19:45 | NUR ---
RECEIVED PATIENT A NEW ADMIT FROM ER. PATIENT ABLE TO AMBULATE TO THE BED FROM [facility] WITH STEADY GAIT, AWAKE, ALERT AND ORIENTED X 4. DENIES PAIN AT THIS TIME. SKIN WARM AND DRY TO TOUCH. DENIES SHORTNESS OF BREATH. BED IN THE LOWEST AND LOCKED POSITION FOR SAFETY, CALL LIGHT IN REACH.
[2022-02-24 20:00] VITALS: BP 137/87
[2022-02-24] MEDS: METOPROLOL SUCCINATE 50 MG TABER PO SCH (20:28)
[2022-02-24] MEDS: RANOLAZINE 500 MG TER PO SCH (20:29)
[2022-02-24] MEDS: TAMSULOSIN 0.4 MG CAP PO SCH (20:29)
[2022-02-25] VITALS: BP 125/78
--- NOTE | 2022-02-25 | NUR ---
PATIENT IS ASLEEP. NO S/SX OF PAIN NOR DISCOMFORT. CALL LIGHT WITHIN REACH.
--- NOTE | 2022-02-25 02:21 | NUR ---
ROUNDING DONE. PATIENT IS ASLEEP. NO DISTRESS NOTED. CALL LIGHT WITHIN REACH.
[2022-02-25 04:00] VITALS: BP 129/77
--- NOTE | 2022-02-25 04:32 | NUR ---
ROUNDING DONE. PATIENT IS ASLEEP. NO S/SX OF DISTRESS. CALL LIGHT WITHIN REACH.
--- NOTE | 2022-02-25 06:22 | NUR ---
PATIENT IS ASLEEP. NO S/SX OF ANY DISTRESS. ALL NEEDS ATTENDED TO. SAFETY PRECAUTIONS MAINTAINED DURING THE SHIFT, CALL LIGHT REMAINED WITHIN REACH.
[2022-02-25 06:23] LABS: ANION GAP 13.5 (8-16); CARBON DIOXIDE 25.5 mmol/L (21-32); CREATININE 1.2 mg/dL (0.6-1.3)
[2022-02-25 06:28] LABS: BASOPHILS % (AUTO) 0.4 % (0.0-2.0); EOSINOPHILS # (AUTO) 0.1 K/uL (0-0.4); HEMATOCRIT 34.9 % (36-52); HEMOGLOBIN 11.8 g/dL (12.0-18.0); LYMPHOCYTES # (AUTO) 3.4 K/uL (2.0-11.5); LYMPHOCYTES % (AUTO) 39.1 % (20.5-51.1); MEAN CORPUSCULAR HEMOGLOBIN 29 pg (27-31); MEAN CORPUSCULAR HGB CONC 34 g/dL (33-37); MEAN CORPUSCULAR VOLUME 86.7 fL (80-94); MONOCYTES # (AUTO) 0.4 K/uL (0.8-1.0); NEUTROPHILS # (AUTO) 4.7 K/uL (1.8-7.7); NEUTROPHILS % (AUTO) 54.5 % (42.2-75.2); PLATELET COUNT (AUTO) 248 K/uL (140-450); RED BLOOD CELL COUNT(AUTO) 4.02 MIL/uL (4.20-6.10); RED CELL DISTRIBUTION WIDTH 16.8 % (11.6-13.7); WHITE BLOOD COUNT (AUTO) 8.7 K/uL (4.8-10.8)
--- NOTE | 2022-02-25 07:07 | NUR ---
RECEIVED REPORT FROM NIGHTSHIFT NURSE SANTANA FOR CONTINUITY OF CARE. PT IS IN STABLE CONDITION. PT IS CURRENTLY SLEEPING AND A/OX4. PT IS BREATHING EVEN, REGULAR, AND UNLABORED ON ROOM AIR. PT IS CONTINENT OF THE BOWELS AND BLADDER AND IS ABLE TO AMBULATE INDEPENDENTLY. SKIN IS INTACT, NO SIGNS OF PAIN OR DISTRESS NOTED AT THIS TIME.
[2022-02-25] MEDS: LOSARTAN 25 MG TAB PO SCH (09:05)
[2022-02-25] MEDS: ATORVASTATIN 20 MG TAB PO SCH (09:05)
[2022-02-25] MEDS: METOPROLOL SUCCINATE 50 MG TABER PO SCH ×2 (09:06→20:47)
[2022-02-25] MEDS: RANOLAZINE 500 MG TER PO SCH ×2 (10:08→20:46)
--- NOTE | 2022-02-25 10:42 | NUR ---
PATIENT HAS BEEN SCREENED AND CATEGORIZED LOW NUTRITION RISK. PATIENT WILL BE SEEN WITHIN 7 DAYS OF ADMISSION. 03/03/22 RE[address]
[2022-02-25 16:00] VITALS: BP 137/74
--- NOTE | 2022-02-25 19:20 | NUR ---
ENDORSED PT TO NIGHTSHIFT NURSE DILLON FOR CONTINUITY OF CARE. PT IN STABLE CONDITION.
--- NOTE | 2022-02-25 19:30 | NUR ---
RECEIVED REPORT FROM THE DAY NURSE. PATIENT IS LYING ON THE BED, HOB ELEVATED, PATIENT IS AWAKE, ALERT AND ORIENTED, CALL LIGHT WITHIN REACH.
[2022-02-25] MEDS: TAMSULOSIN 0.4 MG CAP PO SCH (20:44)
--- NOTE | 2022-02-25 21:00 | NUR ---
DUE MEDICATIONS GIVEN ORDERED. CALL LIGHT WITHIN REACH. WILL CONTINUE TO MONITOR.
--- NOTE | 2022-02-25 21:43 | NUR ---
PROVIDED JUICE AND WARM BLANKET.
--- NOTE | 2022-02-26 00:28 | NUR ---
PATIENT IS ASLEEP, NO SIGNS OF DISTRESS NOTED, BED IN APPROPRIATE TRANSFER HEIGHT, CALL LIGHT WITHIN REACH.
[2022-02-26 04:00] VITALS: BP 106/67
[2022-02-26 05:48] LABS: BASOPHILS % (AUTO) 0.2 % (0.0-2.0); EOSINOPHILS # (AUTO) 0.1 K/uL (0-0.4); EOSINOPHILS % (AUTO) 0.9 % (0.0-4.0); HEMATOCRIT 35.5 % (36-52); HEMOGLOBIN 11.9 g/dL (12.0-18.0); LYMPHOCYTES # (AUTO) 2.9 K/uL (2.0-11.5); LYMPHOCYTES % (AUTO) 29.1 % (20.5-51.1); MEAN CORPUSCULAR HEMOGLOBIN 29 pg (27-31); MEAN CORPUSCULAR HGB CONC 33 g/dL (33-37); MEAN CORPUSCULAR VOLUME 87.3 fL (80-94); MONOCYTES # (AUTO) 0.5 K/uL (0.8-1.0); MONOCYTES % (AUTO) 5.1 % (1.7-9.3); NEUTROPHILS # (AUTO) 6.5 K/uL (1.8-7.7); NEUTROPHILS % (AUTO) 64.7 % (42.2-75.2); PLATELET COUNT (AUTO) 257 K/uL (140-450); RED BLOOD CELL COUNT(AUTO) 4.07 MIL/uL (4.20-6.10); RED CELL DISTRIBUTION WIDTH 16.7 % (11.6-13.7); WHITE BLOOD COUNT (AUTO) 10.1 K/uL (4.8-10.8)
[2022-02-26 06:15] LABS: ANION GAP 12.9 (8-16); CARBON DIOXIDE 26.1 mmol/L (21-32); CREATININE 1.2 mg/dL (0.6-1.3)
--- NOTE | 2022-02-26 06:15 | NUR ---
PATIENT IS ASLEEP, BREATHING EVEN AND NON LABORED ON ROOM AIR, SAFETY PRECAUTIONS MAINTAINED, CALL LIGHT IS WITHIN REACH.
--- NOTE | 2022-02-26 07:25 | NUR ---
ENDORSED PT TO DAY NURSE FOR CONTINUITY OF CARE. PT IS STABLE.
[2022-02-26 08:00] VITALS: BP 106/67
[2022-02-26] MEDS: RANOLAZINE 500 MG TER PO SCH (08:43)
[2022-02-26] MEDS: METOPROLOL SUCCINATE 50 MG TABER PO SCH (08:43)
[2022-02-26] MEDS: LOSARTAN 25 MG TAB PO SCH (08:43)
[2022-02-26] MEDS: ATORVASTATIN 20 MG TAB PO SCH (08:43)
[2022-02-26] MEDS ORDERED: NITR100C7 PO (11:05)
[2022-02-26 16:00] VITALS: BP 120/80
[2022-02-26 16:12] VITALS: BP 120/80
[2022-02-26 16:22] VITALS: BP 120/80
== END 2022-02-26 17:35 | disposition home or self-care (01) | DRG 871 ==
LOC: MED 13:29 → MTU 17:43
PROVIDERS: ADMIT Family Medicine; ATTEND Family Medicine
DX: A41.9 Sepsis, unspecified organism (principal); N17.0 Acute kidney failure with tubular necrosis; N39.0 Urinary tract infection, site not specified; E44.1 Mild protein-calorie malnutrition; N40.0 Benign prostatic hyperplasia without lower urinary tract symptoms; I48.91 Unspecified atrial fibrillation; E83.51 Hypocalcemia; E83.42 Hypomagnesemia; I10 Essential (primary) hypertension; D64.9 Anemia, unspecified; Z20.822 Contact with and (suspected) exposure to COVID-19; Z79.01 Long term (current) use of anticoagulants; Z68.31 Body mass index [BMI] 31.0-31.9, adult
CPT/HCPCS: 36415; 71045; 76770; 80048; 80053; 81001; 82150; 83605; 83690; 83735; 84484; 85025; 87040; 87081; 87086; 93005; 96365; 99285; J0696; J2270; J7060; Q0092